=== PATIENT | male | born 1955 | race Caucasian/White ===

== ENCOUNTER 2017-10-26 14:47 | Inpatient (IN) | payer OTHER ==
[2017-10-26 16:11] LABS: ADD MAN DIFF? NO
[2017-10-26 16:14] LABS: BASOPHIL # 0.1 10^3/ul (0.0-0.1); BASOPHILS % 0.4 % (0.0-2.0); EOSINOPHILS # 0.3 10^3/ul (0.0-0.5); EOSINOPHILS % 2.6 % (0.0-7.0); HEMATOCRIT 29.3 % (42.0-52.0); HEMOGLOBIN 9.8 g/dl (14.0-18.0); LYMPHOCYTES # 1.3 10^3/ul (0.8-2.9); LYMPHOCYTES % 10.7 % (15.0-51.0); MEAN CORPUSCULAR HEMOGLOBIN 30.4 pg (29.0-33.0); MEAN CORPUSCULAR HGB CONC 33.4 g/dl (32.0-37.0); MEAN PLATELET VOLUME 11.2 fl (7.4-10.4); MONOCYTE # 0.7 10^3/ul (0.3-0.9); MONOCYTES % 6.1 % (0.0-11.0); NEUTROPHIL # 9.5 10^3/ul (1.6-7.5); NEUTROPHILS % 79.8 % (39.0-77.0); PLATELET COUNT 153 10^3/UL (140-415); RED BLOOD COUNT 3.22 10^6/ul (4.70-6.10); RED CELL DISTRIBUTION WIDTH 12.5 % (11.5-14.5)
[2017-10-26 16:14] LABS: WHITE BLOOD COUNT 11.9 10^3/ul (4.8-10.8)
[2017-10-26] MEDS: morphine 4 MG/ML VIAL IV (16:23)
[2017-10-26] MEDS: FUROSEMIDE 20 MG INJ IV (16:23)
[2017-10-26] MEDS: NITROGLYCERIN 2% 1 GM OINT PKT TD (16:24)
[2017-10-26] MEDS: ASPIRIN 325 MG TAB PO (16:24)
[2017-10-26] MEDS: ONDANSETRON 4 MG INJ IV (16:24)
[2017-10-26 16:29] LABS: INR 1.02; PARTIAL THROMBOPLASTIN TIME 35.7 Sec (25.0-35.0); PROTIME 13.5 Sec (11.9-14.9); PT RATIO 1.1
[2017-10-26 16:31] LABS: ALANINE AMINOTRANSFERASE 26 IU/L (13-69); ALBUMIN 3.8 g/dl (3.3-4.9); ALBUMIN/GLOBULIN RATIO 1.05; ALKALINE PHOSPHATASE 130 IU/L (42-121); ANION GAP 16 (8-16); ASPARTATE AMINO TRANSFERASE 43 IU/L (15-46); BILIRUBIN,INDIRECT 0.9 mg/dl (0-1.1); BILIRUBIN,TOTAL 0.9 mg/dl (0.2-1.3); BLOOD UREA NITROGEN 61 mg/dl (7-20); CALCIUM 8.1 mg/dl (8.4-10.2); CARBON DIOXIDE 18 mmol/L (21-31); CHLORIDE 108 mmol/L (97-110); CREATININE 6.54 mg/dl (0.61-1.24); GLUCOSE 121 mg/dl (70-220); POTASSIUM 4.9 mmol/L (3.5-5.1); SODIUM 137 mmol/L (135-144); TOTAL PROTEIN 7.4 g/dl (6.1-8.1)
[2017-10-26 16:43] LABS: B-TYPE NATRIURETIC PEPTIDE 18000 PG/ML (0-125); TROPONIN-I 0.018 ng/ml (0.000-0.120)
[2017-10-26] MEDS ORDERED: morphine 2 MG INJ IV (20:30)
[2017-10-26] MEDS ORDERED: NACL 0.9% 3 ML SYG IV (20:30)
[2017-10-26] MEDS ORDERED: ACETAMINOPHEN 325 MG TAB PO (20:30)
[2017-10-26] MEDS ORDERED: ONDANSETRON 4 MG INJ IV (20:30)
[2017-10-26] MEDS ORDERED: LABETALOL HCL 20MG INJ IV (20:30)
[2017-10-26] MEDS ORDERED: GLUCAGON 1 MG INJ IM (21:00)
[2017-10-26] MEDS ORDERED: GLUCOSE GEL 15 GRAM TUBE BUCCAL (21:00)
[2017-10-26] MEDS ORDERED: GLUCOSE GEL 15 GRAM TUBE PO ×2 (21:00)
[2017-10-26] MEDS ORDERED: DEXTROSE 50% 50 ML SYRINGE IV ×2 (21:00)
[2017-10-26 23:08] LABS: TROPONIN-I 0.026 ng/ml (0.000-0.120)
[2017-10-26] MEDS: TAMSULOSIN (SR) 0.4 MG CAP PO (23:21)
[2017-10-26] MEDS: FISH OIL 1,000 MG CAP PO (23:21)
[2017-10-26] MEDS: GABAPENTIN 100 MG CAP PO (23:21)
[2017-10-26] MEDS: TERAZOSIN 1 MG CAP PO (23:21)
[2017-10-26] MEDS: AMLODIPINE 10 MG TAB PO (23:22)
[2017-10-26] MEDS: ALBUTEROL HFA 8 GM INHALER INH (23:22)
[2017-10-26] MEDS: HEPARIN 5,000 UNIT/0.5 ML VIAL SC (23:23)
[2017-10-26] MEDS: INSULIN ASPART [NOVOLOG] 3 ML PEN SC (23:30)
[2017-10-27] MEDS: ALBUTEROL HFA 8 GM INHALER INH ×6 (01:00→20:11)
[2017-10-27] MEDS: ACCU-CHEK XX (02:00)
[2017-10-27 05:21] LABS: ADD MAN DIFF? NO
[2017-10-27 05:32] LABS: BASOPHILS % 0.3 % (0.0-2.0); EOSINOPHILS # 0.4 10^3/ul (0.0-0.5); EOSINOPHILS % 4.3 % (0.0-7.0); HEMATOCRIT 24.6 % (42.0-52.0); HEMOGLOBIN 8.1 g/dl (14.0-18.0); LYMPHOCYTES # 1.7 10^3/ul (0.8-2.9); LYMPHOCYTES % 18.6 % (15.0-51.0); MEAN CORPUSCULAR HEMOGLOBIN 30.2 pg (29.0-33.0); MEAN CORPUSCULAR HGB CONC 32.9 g/dl (32.0-37.0); MEAN CORPUSCULAR VOLUME 91.8 fl (82.0-101.0); MEAN PLATELET VOLUME 11.2 fl (7.4-10.4); MONOCYTE # 0.9 10^3/ul (0.3-0.9); MONOCYTES % 9.4 % (0.0-11.0); NEUTROPHIL # 6.1 10^3/ul (1.6-7.5); NEUTROPHILS % 67.1 % (39.0-77.0); PLATELET COUNT 142 10^3/UL (140-415); RED BLOOD COUNT 2.68 10^6/ul (4.70-6.10); RED CELL DISTRIBUTION WIDTH 12.7 % (11.5-14.5)
[2017-10-27 05:32] LABS: WHITE BLOOD COUNT 9.1 10^3/ul (4.8-10.8)
[2017-10-27 05:53] LABS: TROPONIN-I 0.021 ng/ml (0.000-0.120)
[2017-10-27 05:53] LABS: ANION GAP 10 (8-16); BLOOD UREA NITROGEN 64 mg/dl (7-20); CALCIUM 8.1 mg/dl (8.4-10.2); CARBON DIOXIDE 23 mmol/L (21-31); CHLORIDE 109 mmol/L (97-110); GLUCOSE 97 mg/dl (70-220); MAGNESIUM 2.1 mg/dl (1.7-2.5); POTASSIUM 5.2 mmol/L (3.5-5.1); SODIUM 137 mmol/L (135-144)
[2017-10-27] MEDS: HEPARIN 5,000 UNIT/0.5 ML VIAL SC ×3 (06:03→21:12)
[2017-10-27] MEDS: PANTOPRAZOLE (EC) 40 MG TAB PO (06:04)
[2017-10-27] MEDS: FUROSEMIDE 40 MG INJ IV ×2 (06:04→17:09)
[2017-10-27] MEDS: INSULIN ASPART [NOVOLOG] 3 ML PEN SC ×4 (07:35→20:37)
[2017-10-27 08:47] LABS: CREATINE KINASE 1286 IU/L (23-200)
[2017-10-27 08:47] LABS: IRON 28 ug/dl (35-150)
[2017-10-27 08:48] LABS: URIC ACID 7.2 mg/dl (3.1-7.9)
[2017-10-27 08:51] LABS: CREATININE,URINE RANDOM 45.79 mg/dl (20-370)
[2017-10-27 08:51] LABS: SODIUM,URINE RANDOM 96 mmol/L (30-90)
[2017-10-27 08:57] LABS: % IRON SATURATION 14 % SAT (22-52); TOTAL IRON BINDING CAPACITY 203 ug/dl (241-421)
[2017-10-27] MEDS: FISH OIL 1,000 MG CAP PO ×2 (09:34→20:11)
[2017-10-27] MEDS: AMLODIPINE 10 MG TAB PO (09:34)
[2017-10-27] MEDS: FERROUS SULFATE (EC) 325 MG TAB PO (09:35)
[2017-10-27] MEDS: GABAPENTIN 100 MG CAP PO (09:36)
[2017-10-27] MEDS: TAMSULOSIN (SR) 0.4 MG CAP PO (20:11)
[2017-10-27] MEDS: TERAZOSIN 1 MG CAP PO (20:12)
[2017-10-28] MEDS: ALBUTEROL HFA 8 GM INHALER INH ×6 (00:11→20:18)
[2017-10-28] MEDS: ACCU-CHEK XX (02:00)
[2017-10-28 05:39] LABS: WHITE BLOOD COUNT 8.4 10^3/ul (4.8-10.8)
[2017-10-28 05:39] LABS: ADD MAN DIFF? NO; BASOPHILS % 0.4 % (0.0-2.0); EOSINOPHILS # 0.4 10^3/ul (0.0-0.5); HEMATOCRIT 22.8 % (42.0-52.0); HEMOGLOBIN 7.7 g/dl (14.0-18.0); LYMPHOCYTES # 1.4 10^3/ul (0.8-2.9); LYMPHOCYTES % 16.5 % (15.0-51.0); MEAN CORPUSCULAR HEMOGLOBIN 30.4 pg (29.0-33.0); MEAN CORPUSCULAR HGB CONC 33.8 g/dl (32.0-37.0); MEAN CORPUSCULAR VOLUME 90.1 fl (82.0-101.0); MEAN PLATELET VOLUME 11.5 fl (7.4-10.4); MONOCYTE # 0.8 10^3/ul (0.3-0.9); MONOCYTES % 9.1 % (0.0-11.0); NEUTROPHIL # 5.8 10^3/ul (1.6-7.5); NEUTROPHILS % 68.8 % (39.0-77.0); PLATELET COUNT 121 10^3/UL (140-415); POSITIVE DIFF @See below; RED BLOOD COUNT 2.53 10^6/ul (4.70-6.10); RED CELL DISTRIBUTION WIDTH 12.3 % (11.5-14.5)
[2017-10-28] MEDS: PANTOPRAZOLE (EC) 40 MG TAB PO (05:46)
[2017-10-28] MEDS: FUROSEMIDE 40 MG INJ IV ×2 (05:46→17:09)
[2017-10-28] MEDS: HEPARIN 5,000 UNIT/0.5 ML VIAL SC (05:52)
[2017-10-28 06:06] LABS: ALANINE AMINOTRANSFERASE 23 IU/L (13-69); ALBUMIN 2.7 g/dl (3.3-4.9); ALBUMIN/GLOBULIN RATIO 0.93; ALKALINE PHOSPHATASE 89 IU/L (42-121); ANION GAP 17 (8-16); ASPARTATE AMINO TRANSFERASE 23 IU/L (15-46); BILIRUBIN,INDIRECT 1.1 mg/dl (0-1.1); BILIRUBIN,TOTAL 1.1 mg/dl (0.2-1.3); BLOOD UREA NITROGEN 68 mg/dl (7-20); CALCIUM 7.7 mg/dl (8.4-10.2); CARBON DIOXIDE 19 mmol/L (21-31); CHLORIDE 107 mmol/L (97-110); CREATININE 7.63 mg/dl (0.61-1.24); GLUCOSE 91 mg/dl (70-220); SODIUM 138 mmol/L (135-144); TOTAL PROTEIN 5.6 g/dl (6.1-8.1)
[2017-10-28 06:13] LABS: PHOSPHORUS 6.1 mg/dl (2.5-4.9)
[2017-10-28 06:13] LABS: CREATINE KINASE 955 IU/L (23-200)
[2017-10-28] MEDS: INSULIN ASPART [NOVOLOG] 3 ML PEN SC ×4 (07:35→20:23)
[2017-10-28] MEDS: FERROUS SULFATE (EC) 325 MG TAB PO (09:06)
[2017-10-28] MEDS: AMLODIPINE 10 MG TAB PO (09:07)
[2017-10-28] MEDS: FISH OIL 1,000 MG CAP PO ×2 (09:07→20:17)
[2017-10-28] MEDS ORDERED: SEVELAMER CARBONATE 0.8 GM PKT PO (09:30)
[2017-10-28] MEDS: CITRIC ACID/SODIUM CITRATE 15 ML CUP PO ×2 (10:10→20:17)
[2017-10-28] MEDS: SEVELAMER CARBONATE 0.8 GM PKT PO ×2 (11:57→17:08)
[2017-10-28] MEDS: ASPIRIN (EC) 81 MG TAB PO (13:19)
[2017-10-28 13:54] LABS: CHOLESTEROL 144 mg/dl (100-200)
[2017-10-28 13:54] LABS: HDL CHOLESTEROL 36 mg/dl (30-78); LDL CHOLESTEROL,CALCULATED 92 mg/dl; TRIGLYCERIDES 79 mg/dl (0-149)
[2017-10-28] MEDS ORDERED: morphine LIQ (10 MG/5 ML) CUP PO (14:30)
[2017-10-28] MEDS: ACETAMINOPHEN 325 MG TAB PO (15:22)
[2017-10-28] MEDS: SOD FERRIC GLUC COMPLX 125 MG in SOD CHLORIDE 0.9% 100 ML IVPB (16:12)
[2017-10-28] MEDS: EPOETIN 3000 UNITS/ML (NON ESRD/NON ONCOLOGY) SC (17:43)
[2017-10-28] MEDS: TAMSULOSIN (SR) 0.4 MG CAP PO (20:17)
[2017-10-28] MEDS: TERAZOSIN 1 MG CAP PO (20:17)
[2017-10-28] MEDS: ATORVASTATIN 20 MG TAB PO (20:18)
[2017-10-28] MEDS ORDERED: HEPARIN 5,000 UNIT/0.5 ML VIAL SC (21:00)
[2017-10-29] MEDS: ALBUTEROL HFA 8 GM INHALER INH ×6 (00:35→22:03)
[2017-10-29] MEDS: ACCU-CHEK XX (02:00)
[2017-10-29] MEDS: FUROSEMIDE 40 MG INJ IV (05:25)
[2017-10-29] MEDS: PANTOPRAZOLE (EC) 40 MG TAB PO (05:25)
[2017-10-29 06:15] LABS: ADD MAN DIFF? NO
[2017-10-29 06:27] LABS: BASOPHILS % 0.4 % (0.0-2.0); EOSINOPHILS # 0.6 10^3/ul (0.0-0.5); EOSINOPHILS % 7.2 % (0.0-7.0); HEMATOCRIT 24.4 % (42.0-52.0); HEMOGLOBIN 8.1 g/dl (14.0-18.0); LYMPHOCYTES # 1.2 10^3/ul (0.8-2.9); LYMPHOCYTES % 14.6 % (15.0-51.0); MEAN CORPUSCULAR HEMOGLOBIN 29.9 pg (29.0-33.0); MEAN CORPUSCULAR HGB CONC 33.2 g/dl (32.0-37.0); MEAN PLATELET VOLUME 11.7 fl (7.4-10.4); MONOCYTE # 0.7 10^3/ul (0.3-0.9); NEUTROPHIL # 5.6 10^3/ul (1.6-7.5); NEUTROPHILS % 68.6 % (39.0-77.0); PLATELET COUNT 134 10^3/UL (140-415); RED BLOOD COUNT 2.71 10^6/ul (4.70-6.10); RED CELL DISTRIBUTION WIDTH 12.2 % (11.5-14.5)
[2017-10-29 06:27] LABS: WHITE BLOOD COUNT 8.2 10^3/ul (4.8-10.8)
[2017-10-29 06:50] LABS: PHOSPHORUS 6.5 mg/dl (2.5-4.9)
[2017-10-29 06:55] LABS: ANION GAP 16 (8-16); BLOOD UREA NITROGEN 77 mg/dl (7-20); CALCIUM 7.9 mg/dl (8.4-10.2); CARBON DIOXIDE 22 mmol/L (21-31); CHLORIDE 105 mmol/L (97-110); CREATININE 8.46 mg/dl (0.61-1.24); GLUCOSE 93 mg/dl (70-220); POTASSIUM 5.1 mmol/L (3.5-5.1); SODIUM 138 mmol/L (135-144)
[2017-10-29] MEDS: SEVELAMER CARBONATE 0.8 GM PKT PO ×3 (07:35→17:09)
[2017-10-29] MEDS: INSULIN ASPART [NOVOLOG] 3 ML PEN SC ×4 (07:35→22:00)
[2017-10-29] MEDS: FERROUS SULFATE (EC) 325 MG TAB PO (08:28)
[2017-10-29] MEDS: ASPIRIN (EC) 81 MG TAB PO (08:28)
[2017-10-29] MEDS: FISH OIL 1,000 MG CAP PO ×2 (08:28→22:02)
[2017-10-29] MEDS: DOCUSATE SODIUM 100 MG CAP PO (08:28)
[2017-10-29] MEDS: CITRIC ACID/SODIUM CITRATE 15 ML CUP PO ×2 (08:28→22:02)
[2017-10-29] MEDS: REGADENOSON 0.4 MG/5 ML SYG (11:45)
[2017-10-29] MEDS: AMLODIPINE 10 MG TAB PO (12:41)
[2017-10-29] MEDS: SOD FERRIC GLUC COMPLX 125 MG in SOD CHLORIDE 0.9% 100 ML IVPB (16:12)
[2017-10-29] MEDS: TERAZOSIN 1 MG CAP PO (22:02)
[2017-10-29] MEDS: ATORVASTATIN 20 MG TAB PO (22:02)
[2017-10-29] MEDS: TAMSULOSIN (SR) 0.4 MG CAP PO (22:02)
[2017-10-29] MEDS: ACETAMINOPHEN 325 MG TAB PO (23:32)
[2017-10-30] MEDS: ALBUTEROL HFA 8 GM INHALER INH ×4 (01:00→13:53)
[2017-10-30] MEDS: ACCU-CHEK XX (02:00)
[2017-10-30] MEDS: PANTOPRAZOLE (EC) 40 MG TAB PO (05:33)
[2017-10-30] MEDS: FUROSEMIDE 20 MG INJ IV ×2 (05:34→09:31)
[2017-10-30] MEDS ORDERED: FUROSEMIDE 40 MG INJ IV (06:00)
[2017-10-30 06:07] LABS: ADD MAN DIFF? NO
[2017-10-30 06:10] LABS: BASOPHILS % 0.5 % (0.0-2.0); EOSINOPHILS # 0.7 10^3/ul (0.0-0.5); EOSINOPHILS % 9.5 % (0.0-7.0); HEMATOCRIT 23.9 % (42.0-52.0); HEMOGLOBIN 8.2 g/dl (14.0-18.0); MEAN CORPUSCULAR HEMOGLOBIN 30.8 pg (29.0-33.0); MEAN CORPUSCULAR HGB CONC 34.3 g/dl (32.0-37.0); MEAN CORPUSCULAR VOLUME 89.8 fl (82.0-101.0); MEAN PLATELET VOLUME 11.5 fl (7.4-10.4); MONOCYTE # 0.7 10^3/ul (0.3-0.9); MONOCYTES % 8.9 % (0.0-11.0); NEUTROPHIL # 4.1 10^3/ul (1.6-7.5); PLATELET COUNT 145 10^3/UL (140-415); RED BLOOD COUNT 2.66 10^6/ul (4.70-6.10); RED CELL DISTRIBUTION WIDTH 12.3 % (11.5-14.5)
[2017-10-30 06:10] LABS: WHITE BLOOD COUNT 7.5 10^3/ul (4.8-10.8)
[2017-10-30 06:31] LABS: ANION GAP 19 (8-16); BLOOD UREA NITROGEN 78 mg/dl (7-20); CARBON DIOXIDE 22 mmol/L (21-31); CHLORIDE 102 mmol/L (97-110); CREATININE 9.02 mg/dl (0.61-1.24); GLUCOSE 93 mg/dl (70-220); POTASSIUM 4.6 mmol/L (3.5-5.1); SODIUM 138 mmol/L (135-144)
[2017-10-30 06:33] LABS: PHOSPHORUS 5.9 mg/dl (2.5-4.9)
[2017-10-30] MEDS: INSULIN ASPART [NOVOLOG] 3 ML PEN SC ×2 (07:35→11:54)
[2017-10-30] MEDS: ASPIRIN (EC) 81 MG TAB PO (08:33)
[2017-10-30] MEDS: CITRIC ACID/SODIUM CITRATE 15 ML CUP PO (08:33)
[2017-10-30] MEDS: FISH OIL 1,000 MG CAP PO (08:33)
[2017-10-30] MEDS: FERROUS SULFATE (EC) 325 MG TAB PO (08:34)
[2017-10-30] MEDS: SEVELAMER CARBONATE 0.8 GM PKT PO ×2 (08:34→11:52)
[2017-10-30] MEDS: AMLODIPINE 10 MG TAB PO (10:39)
[2017-10-30 19:41] LABS: PTH CALCIUM 7.9 mg/dL (8.6-10.3)
[2017-10-31] MEDS ORDERED: FUROSEMIDE 20 MG TAB PO (09:00)
[2017-10-31 09:32] LABS: PTH INTACT 375 pg/mL (14-64)
== END 2017-10-30 15:06 | disposition short-term general hospital (02) | DRG 291 ==
LOC: E/R 14:47 → MS3 20:13
PROC: 5A09357 Assistance with Respiratory Ventilation, Less than 24 Consecutive Hours, Continuous Positive Airway Pressure (ICD-10-PCS; principal; 2017-10-26)
DX: I13.0 Hypertensive heart and chronic kidney disease with heart failure and stage 1 through stage 4 chronic kidney disease, or unspecified chronic kidney disease (principal); I50.43 Acute on chronic combined systolic (congestive) and diastolic (congestive) heart failure; J96.01 Acute respiratory failure with hypoxia; N18.4 Chronic kidney disease, stage 4 (severe); N17.9 Acute kidney failure, unspecified; E87.2 Acidosis; E11.22 Type 2 diabetes mellitus with diabetic chronic kidney disease; E11.21 Type 2 diabetes mellitus with diabetic nephropathy; E78.5 Hyperlipidemia, unspecified; N40.0 Benign prostatic hyperplasia without lower urinary tract symptoms; D63.1 Anemia in chronic kidney disease; K21.9 Gastro-esophageal reflux disease without esophagitis; I42.9 Cardiomyopathy, unspecified; I44.7 Left bundle-branch block, unspecified; E87.5 Hyperkalemia; E83.39 Other disorders of phosphorus metabolism; Z79.4 Long term (current) use of insulin
CPT/HCPCS: 36415; 71045; 71046; 76775; 78452; 80048; 80053; 80061; 81003; 82306; 82550; 82728; 82962; 83540; 83735; 83880; 83970; 84100; 84155; 84300; 84439; 84443; 84484; 84560; 85025; 85610; 85730; 89190; 93005; 93017; 93306; 94660; 96374; 96375; 99291-25